=== PATIENT | male | born 1945 | race Asian ===

== ENCOUNTER 2017-09-28 23:11 | Emergency (ER) | payer MEDICARE, MEDICAID ==
[~2017-09-28] VITALS: Ht 175.3 cm; Wt 57.8 kg
[2017-09-28 23:15] VITALS: Ht 175.3 cm; Wt 57.8 kg
[2017-09-29 02:52] VITALS: BP 136/64
== END 2017-09-29 02:52 | disposition home or self-care (01) ==
LOC: ED 23:11
DX: T17.208A Unspecified foreign body in pharynx causing other injury, initial encounter (principal); I10 Essential (primary) hypertension; X58.XXXA Exposure to other specified factors, initial encounter; Y93.89 Activity, other specified; Y92.89 Other specified places as the place of occurrence of the external cause; Y99.8 Other external cause status